=== PATIENT | female | born 2000 | race Caucasian/White ===

== ENCOUNTER 2023-05-18 21:56 | Emergency (ER) | payer BC ==
[~2023-05-18] VITALS: Ht 162.6 cm; Wt 52.2 kg
[2023-05-18 22:03] VITALS: BP 138/85; TEMP 98.9; O2SAT 98
== END 2023-05-18 22:47 | disposition left against medical advice (07) ==
LOC: ER 21:59
DX: B34.9 Viral infection, unspecified (principal); J02.9 Acute pharyngitis, unspecified
CPT/HCPCS: 71045-TC